=== PATIENT | female | born 1945 | race Two or more races ===

== ENCOUNTER 2018-05-25 09:23 | Emergency (ER) | payer OTHER ==
[~2018-05-25] VITALS: Ht 152.4 cm; Wt 62.6 kg
[2018-05-25] MEDS ORDERED: FORTAMET500 MG (09:29)
[2018-05-25] MEDS ORDERED: CARDIZEM CD180 M1 (09:29)
[2018-05-25] MEDS ORDERED: LOSARTAN POTASS50 MG (09:29)
[2018-05-25] MEDS ORDERED: NEXIUM40 M1 (09:29)
[2018-05-25] MEDS ORDERED: SYNTHROID88 MCG (09:30)
[2018-05-25] MEDS ORDERED: SENNA8.6 MG (09:30)
[2018-05-25] MEDS ORDERED: [UNRECOGNIZED DRUG - OTHER] (09:31)
== END 2018-05-25 11:58 | disposition home or self-care (01) ==
LOC: ER 09:23
DX: L53.8 Other specified erythematous conditions (principal)

== ENCOUNTER → 2018-06-18 | Emergency (ER) | payer OTHER ==
[~2018-06-18] VITALS: Ht 157.5 cm; Wt 63.5 kg
[~2018-06-18] MED LIST: CARDIZEM CD180 M1; FORTAMET500 MG; LOSARTAN POTASS50 MG; NEXIUM40 M1; SENNA8.6 MG; SYNTHROID88 MCG; [UNRECOGNIZED DRUG - OTHER]
== END | disposition left against medical advice (07) ==
LOC: ER 19:06
DX: Z53.20 Procedure and treatment not carried out because of patient's decision for unspecified reasons (principal)

== ENCOUNTER → 2019-09-20 | Emergency (ER) | payer OTHER ==
[~2019-09-20] VITALS: Ht 160 cm; Wt 67.1 kg
[~2019-09-20] MED LIST changes: +VISTARIL25 MG PO
== END | disposition left against medical advice (07) ==
LOC: ER 20:00
DX: F41.8 Other specified anxiety disorders (principal); R06.02 Shortness of breath; Z03.818 Encounter for observation for suspected exposure to other biological agents ruled out

== ENCOUNTER 2020-03-31 13:04 | Inpatient (IN) | payer OTHER ==
[~2020-03-31] VITALS: Ht 154.9 cm; Wt 54.4 kg
== END 2020-04-02 21:08 | disposition home or self-care (01) | DRG 177 ==
LOC: ER 13:04 → MEDJ 20:15
PROVIDERS: ADMIT Internal Medicine; ATTEND Internal Medicine
PROC: 3E0F7SF Introduction of Other Gas into Respiratory Tract, Via Natural or Artificial Opening (ICD-10-PCS; 2020-03-31)
PROC: CB2YYZZ Tomographic (Tomo) Nuclear Medicine Imaging of Respiratory System using Other Radionuclide (ICD-10-PCS; 2020-03-31)
PROC: 8E0ZXY6 Isolation (ICD-10-PCS; principal; 2020-04-01)
PROC: 4A033R1 Measurement of Arterial Saturation, Peripheral, Percutaneous Approach (ICD-10-PCS; 2020-04-01)
PROC: 4A12X4Z Monitoring of Cardiac Electrical Activity, External Approach (ICD-10-PCS; 2020-04-01)
DX: U07.1 COVID-19 (principal); J12.89 Other viral pneumonia; E89.0 Postprocedural hypothyroidism; I10 Essential (primary) hypertension; E11.9 Type 2 diabetes mellitus without complications; C73 Malignant neoplasm of thyroid gland; R09.02 Hypoxemia

== ENCOUNTER 2020-06-05 10:40 | Outpatient (CLI) | payer OTHER | END 2020-06-05 10:48 | disposition home or self-care (01) | LOC: RAD 10:40 | PROVIDERS: ATTEND Internal Medicine | DX: J84.89 Other specified interstitial pulmonary diseases (principal) ==

== ENCOUNTER 2024-08-22 08:18 | Emergency (ER) | payer OTHER ==
[~2024-08-22] VITALS: Ht 152.4 cm; Wt 49.9 kg
[2024-08-22] MEDS ORDERED: PROMETHAZINE HCL 50 MG/ML AMPUL IM STA (09:16)
[2024-08-22] MEDS ORDERED: METOCLOPRAMIDE HCL 5 MG/ML VIAL IM STA (09:16)
[2024-08-22] MEDS ORDERED: 0.9 % SODIUM CHLORIDE 1,000 ML IV STA (09:19)
[2024-08-22] MEDS ORDERED: FAMOtidine 10 MG/ML (4ML VIAL) IV PUSH STA (09:21)
[2024-08-22] MEDS ORDERED: METOCLOPRAMIDE HCL 5 MG/ML VIAL ONE (09:41)
[2024-08-22] MEDS ORDERED: PROMETHAZINE HCL 50 MG/ML AMPUL IM ONE (09:41)
[2024-08-22] MEDS ORDERED: FAMOTIDINE/PF 20 MG/2 ML VIAL ONE (09:42)
[2024-08-22 10:20] LABS: HEMOGLOBIN 14.7 g/dL (12.0-15.00); MEAN CELL VOLUME 96.9 fL (80.00-100.00); MEAN CORPUSCULAR HEMOGLOBIN 32.5 pg (27.00-32.0); MEAN CORPUSCULAR HGB CONC 33.5 g/dl (32.0-36.0); PLATELET COUNT 333 K/uL (150-450); RED BLOOD COUNT 4.54 M/uL (4.00-6.00); RED CELL DISTRIBUTION WIDTH 15.2 % (11.5-14.5)
[2024-08-22 10:24] LABS: ALBUMIN 3.2 gm/dL (3.4-5.0); BILIRUBIN TOTAL 0.31 mg/dL (0.3-1.2); CREATININE SERUM 0.7 mg/dL (0.55-1.02); GFR 81.36; GLOBULINA 2.9 G/DL (2.4-3.5); POTASSIUM 4.14 mEq/L (3.5-5.1); TOTAL PROTEIN 6.1 gm/dL (6.4-8.2)
[2024-08-22 10:31] LABS: INR 0.98; PARTIAL THROMBOPLASTIN TIME 23.5 SECONDS (22.0-34.0); PROTHROMBIN TIME 10.7 SECONDS (9.0-11.5)
== END 2024-08-22 12:41 | disposition home or self-care (01) ==
LOC: ER 08:18
DX: K29.70 Gastritis, unspecified, without bleeding (principal); E86.0 Dehydration; R11.10 Vomiting, unspecified
CPT/HCPCS: 36415; 96365; 96366; 96372; 99282; J2765; J3490 ×2; J7030